=== PATIENT | male | born 1975 | race African-American/Black ===

== ENCOUNTER 2019-02-15 15:49 | Emergency (ER) | payer MEDICAID ==
[~2019-02-15] VITALS: Ht 167.6 cm; Wt 68.0 kg
--- NOTE | 2019-02-15 15:51 | NUR ---
ED Nurse Note: PT BROUGHT IN BY R61 FROM BUS STOP DUE TO MEDIAL NONRADIATING CHEST PAIN X 40 MINUTES AGO. PT ALSO C/O NUMBNESS OR LEFT ARM. PT DENIES DIZZINESS, NAUSEA, OR VOMITING. BP 152/97 WITH HR [address] SPENCER NOTIFIED.
[2019-02-15 15:58] VITALS: BP 152/97
--- NOTE | 2019-02-15 15:58 | NUR ---
ED Nurse Note: EKG COMPLETED - SINUS TACHY. NOTIFIED.
[2019-02-15] MEDS ORDERED: Haloperidol 5mg/ml Inj IM ONE (16:30)
[2019-02-15] MEDS ORDERED: LORazepam Inj 2mg/ml 1ml IV ONE (16:30)
[2019-02-15] MEDS ORDERED: DiphenhydrAMINE 50mg/ml Inj IM ONE (16:30)
[2019-02-15 16:57] LABS: BASOPHILS % (AUTO) 1.3 % (0.0-2.0); EOSINOPHILS % (AUTO) 3.1 % (0.0-3.0); HEMATOCRIT 43.4 % (42.0-52.0); LYMPHOCYTES % (AUTO) 10.4 % (20.0-45.0); MEAN CORPUSCULAR VOLUME 79 FL (80-99); MONOCYTES % (AUTO) 6.9 % (1.0-10.0); NEUTROPHILS % (AUTO) 78.2 % (45.0-75.0); PLATELET COUNT 355 K/UL (150-450); RED BLOOD COUNT 5.46 M/UL (4.70-6.10); RED CELL DISTRIBUTION WIDTH 15.3 % (11.6-14.8)
--- NOTE | 2019-02-15 17:03 | Diagnostic Imaging Report ---
EXAM: XR Chest, 1 View CLINICAL HISTORY: PAIN TECHNIQUE: Frontal view of the chest. COMPARISON: No relevant prior studies available. FINDINGS: Lungs: No consolidation. Pleural space: Unremarkable. No pneumothorax. Heart: Unremarkable. No cardiomegaly. Mediastinum: Unremarkable. Bones/joints: No acute fracture. IMPRESSION: No acute cardiopulmonary disease.
[2019-02-15 17:12] LABS: ANION GAP 10 mmol/L (5-15); BLOOD UREA NITROGEN 12 mg/dL (7-18); CARBON DIOXIDE 29 MMOL/L (21-32); CHLORIDE 99 MMOL/L (98-107); SODIUM 137 MMOL/L (136-145)
[2019-02-15 17:17] LABS: ALANINE AMINOTRANSFERASE 19 U/L (12-78); ALBUMIN 3.9 G/DL (3.4-5.0); ALBUMIN/GLOBULIN RATIO 0.8 (1.0-2.7); ALKALINE PHOSPHATASE 126 U/L (46-116); ASPARTATE AMINO TRANSFERASE 19 U/L (15-37); BILIRUBIN,TOTAL 0.3 MG/DL (0.2-1.0)
--- NOTE | 2019-02-15 17:46 | Emergency Room Report ---
History of Present Illness General Chief Complaint: Chest Pain Source: Patient Present Illness HPI 43-year-old male patient presents the ER brought in by ambulance complaining of chest pain for the past few hours. Denies history of cardiac problems in the past. Denies history of heart attack or high blood pressure. Reports history of PTSD, states that he is also being seen by methadone clinic however stopped in the past 2 days. Denies drug use. Denies alcohol use. Reports he smokes weed and cigarettes. Denies fever, shortness of breath, abdominal pain. Denies vomiting or diarrhea. Patient denies HI or SI. Denies other past medical history. Denies acute injury or accident. Allergies: Coded Allergies: No Known Allergies (Unverified , 02/15/19) Patient History Past Medical History: see triage record Reviewed Nursing Documentation: PMH: Agreed; PSxH: Agreed Nursing Documentation-PMH Past Medical History: No History, Except For History Of Psychiatric Problem: Yes - PTSD, Anxiety Review of Systems All Other Systems: negative except mentioned in HPI Physical Exam Vital Signs Date Time Temp Pulse Resp B/P (MAP) Pulse Ox O2 Delivery O2 Flow Rate FiO2 02/15/19 15:45 98.1 111 20 152/97 99 Room Air Sp02 EP Interpretation: reviewed, normal General Appearance: well appearing, no apparent distress, alert, GCS 15, non- toxic Head: normocephalic, atraumatic Eyes: bilateral eye normal inspection, bilateral eye PERRL ENT: hearing grossly normal, normal pharynx, no angioedema, normal voice, uvula midline, moist mucus membranes Neck: full range of motion Respiratory: lungs clear, normal breath sounds, no rhonchi, no respiratory distress, no accessory muscle use, no wheezing, speaking full sentences, other - Chest tender to palpation, no bony depression, no flail chest Cardiovascular #1: regular rate, rhythm, no edema Gastrointestinal: non tender, soft, no mass, non-distended, no guarding, no rebound Genitourinary: no CVA tenderness Musculoskeletal: back normal, digits/nails normal, gait/station normal, normal range of motion, non-tender Neurologic: alert, oriented x3, responsive, motor strength/tone normal, sensory intact Skin: no rash Medical Decision Making PA Attestation Dr. Andre is my supervising Physician whom patient management has been discussed with. Diagnostic Impression: Primary Impression: Polydrug abuse Additional Impression: Nonspecific chest pain ER Course Pt. presents to the ED c/o chest pain, reports has not received methadone in 2 days. Ddx considered but are not limited to anxiety, depression, drug use, alcohol use , behavioral disorder, PR, PE. Low suspicion for PE per [facility] criteria. On PE, chest is TTP; chest pain likely musculoskeletal in nature. Patient instructed to take NSAIDs as needed for pain symptoms. Vital signs: are WNL, pt. is afebrile, slight tachycardia noted, will continue to monitor. Ordered labs, urine drug screen, serum alcohol. ER COURSE: Provide patient with Ativan while in the ER. urine drug screen positive for opiates, marijuana, amphetamines, remainder negative. CBC and CMP unremarkable, mild elevation noted in WBCs although no fever, no clinical signs of infection, likely due to amphetamine use or pain. EKG shows tachycardia, no ST elevations, chest x-ray negative, troponin negative , low suspicion for PR or cardiac etiology of symptoms. Chest is tender to palpation, likely muscular skeletal nature, advised patient take Tylenol Motrin for pain symptoms. Serum alcohol less than 3, no elevation in acetaminophen or salicylate levels. Patient instructed not to use drugs. Patient resting comfortably no acute distress, nontoxic-appearing. Reports symptoms improve on the ER. No clinical signs of dehydration. Patient answers questions without difficulty, eating food and drinking while in the ER. Patient will be discharged home in care of sister. Advised to follow-up with primary care provider and mental health professional. Provided with contact information for mental health urgent care. ER precautions given. Vital stable prior to discharge. DISCHARGE At this time pt is stable for d/c to home. Patient is resting comfortably, in no acute distress, nontoxic appearing, talking without difficulty. Patient to take medications as instructed Will provide with patient care instructions and any necessary prescriptions. Care plan and follow-up instructions provided. Patient instructed to follow-up with primary care provider in 2-3 days. Patient questions asked and answered. Patient reports understanding and agreement to treatment plan. ER precautions given. Patient instructed to return to ER immediately for any new or worsening of symptoms including but not limited to increasing SOB, persistent fever. - Please note that this Emergency Department Report was dictated using appening[employer] dispenser technology software, occasionally this can lead to erroneous entry secondary to interpretation by the dictation equipment. Dragon Labs Test 02/15/19 16:34 02/15/19 16:41 02/15/19 16:45 Urine Opiates Screen Positive (NEGATIVE) Urine Barbiturates Screen Negative (NEGATIVE) Phencyclidine (PCP) Screen Negative (NEGATIVE) Urine Amphetamines Screen Positive (NEGATIVE) Urine Benzodiazepines Screen Negative (NEGATIVE) Urine Cocaine Screen Negative (NEGATIVE) Urine Marijuana (THC) Screen Positive (NEGATIVE) White Blood Count 12.0 K/UL (4.8-10.8) Red Blood Count 5.46 M/UL (4.70-6.10) Hemoglobin 14.0 G/DL (14.2-18.0) Hematocrit 43.4 % (42.0-52.0) Mean Corpuscular Volume 79 FL (80-99) Mean Corpuscular Hemoglobin 25.6 PG (27.0-31.0) Mean Corpuscular Hemoglobin Concent 32.3 G/DL (32.0-36.0) Red Cell Distribution Width 15.3 % (11.6-14.8) Platelet Count 355 K/UL (150-450) Mean Platelet Volume 6.1 FL (6.5-10.1) Neutrophils (%) (Auto) 78.2 % (45.0-75.0) Lymphocytes (%) (Auto) 10.4 % (20.0-45.0) Monocytes (%) (Auto) 6.9 % (1.0-10.0) Eosinophils (%) (Auto) 3.1 % (0.0-3.0) Basophils (%) (Auto) 1.3 % (0.0-2.0) Sodium Level 137 MMOL/L (136-145) Potassium Level 4.0 MMOL/L (3.5-5.1) Chloride Level 99 MMOL/L (98-107) Carbon Dioxide Level 29 MMOL/L (21-32) Anion Gap 10 mmol/L (5-15) Blood Urea Nitrogen 12 mg/dL (7-18) Creatinine 1.0 MG/DL (0.55-1.30) Estimat Glomerular Filtration Rate > 60 mL/min (>60) Glucose Level 79 MG/DL (74-106) Calcium Level 10.0 MG/DL (8.5-10.1) Total Bilirubin 0.3 MG/DL (0.2-1.0) Aspartate Amino Transf (AST/SGOT) 19 U/L (15-37) Alanine Aminotransferase (ALT/SGPT) 19 U/L (12-78) Alkaline Phosphatase 126 U/L (46-116) Total Protein 8.7 G/DL (6.4-8.2) Albumin 3.9 G/DL (3.4-5.0) Globulin 4.8 g/dL Albumin/Globulin Ratio 0.8 (1.0-2.7) Salicylates Level 4.0 ug/mL (2.8-20) Acetaminophen Level < 2 MCG/ML (10-30) Serum Alcohol < 3 mg/dL Troponin I 0.000 ng/mL (0.000-0.056) EKG Diagnostic Results Rate: tachycardiac Rhythm: NSR ST Segments: no acute changes ASA given to the pt in ED: No PA Scribe Manisha Downey PA-C Rhythm Strip Diag. Results EP Interpretation: yes Rate: 109 Rhythm: NSR, no PVC's, no ectopy ANDRA Scribe Manisha Downey PA-C Chest X-Ray Diagnostic Results Chest X-Ray Diagnostic Results : Chest X-Ray Ordered: Yes # of Views/Limited/Complete: 1 View Indication: Chest Pain EP Interpretation: Yes PA Xray: Interpretation reviewed, by supervising MD, and agrees with findings. Interpretation: no consolidation, no effusion, no pneumothorax, no acute cardiopulmonary disease Impression: No acute disease ANDRA Scribe Manisha Downey PA-C Last Vital Signs Date Time Temp Pulse Resp B/P (MAP) Pulse Ox O2 Delivery O2 Flow Rate FiO2 02/15/19 15:58 98.2 108 18 152/97 98 Room Air Status: improved Disposition: HOME, SELF-CARE Condition: Stable Patient Instructions: Drug Toxicity, Nonspecific Chest Pain, Stimulant Use Disorder-Methamphetamines Additional Instructions: Followup with primary care provider in 3 -5 days. Follow-up with cardiology and discussed need for cardiac stress testing. Follow-up with mental health professional. Do not use drugs. Take medications as directed. [id number] Tylenol or Motrin for pain symptoms. Patient questions asked and answered. ER precautions given, patient instructed to return to ER immediately for any new or worsening of symptoms. Ta Downey Feb 15, 2019 17:46
[2019-02-15 18:49] VITALS: BP 124/87
--- NOTE | 2019-02-15 18:57 | NUR ---
ED Nurse Note: PT STATES HIS SISTER WILL BE COMING TO PICK HIM UP FOR D/C. SISTER, CAMILLA, CALLED. PT CONFIRMS THAT SHE WILL COME TO PICK HIM UP AROUND 2029.
--- NOTE | 2019-02-15 18:58 | NUR ---
ED Nurse Note: CAMILLA (SISTER): [phone]
--- NOTE | 2019-02-15 19:06 | NUR ---
ED Nurse Note: REPORT GIVEN TO MERLY RENE.
--- NOTE | 2019-02-15 19:07 | NUR ---
ED Nurse Note: Received report from Bing/MERLY. Pt is A/O X 3-4. C/O chest pain, waiting for family to brain picker pt to D/C home. Will continue to monitor.
--- NOTE | 2019-02-15 20:20 | NUR ---
ED Nurse Note: Called pt's sister Marcia and she said was on the way to Hospital.
[2019-02-15 21:20] VITALS: BP 125/81
[2019-02-15 22:05] VITALS: BP 121/82
--- NOTE | 2019-02-15 22:05 | NUR ---
ER DISCHARGE NOTE: Patient is cleared to be discharged per Nasreen De Souza/ANDRA. Pt's sister's / Brother -in law arrived. Pt is A/O x3-4 on room air with stable vital signs. Pt was given D/C and prescription instructions and pt was able to verbalize understanding. Pt's IV canular and ID band removed. Pt is d/c'd with his own wheelchair and all belongings.
--- NOTE | 2019-02-17 19:24 | Cardiology Report ---
APPROVED REPORT EKG Measurement Heart [id number] Sinus tachycardia Otherwise normal ECG
== END 2019-02-15 22:05 | disposition home or self-care (01) ==
LOC: EDBD 15:49 → EMR 17:56
DX: F11.10 Opioid abuse, uncomplicated (principal); F12.10 Cannabis abuse, uncomplicated; F15.10 Other stimulant abuse, uncomplicated; R07.9 Chest pain, unspecified; F17.210 Nicotine dependence, cigarettes, uncomplicated; F41.9 Anxiety disorder, unspecified; R00.0 Tachycardia, unspecified
CPT/HCPCS: 36415; 71045; 80053; 80307; 80329; 84484; 85025; 93005; 96361; 96374; 99284